=== PATIENT | female | born 1985 | race Caucasian/White ===

== ENCOUNTER 2022-08-07 21:55 | Emergency (ER) | payer OTHER, SELFPAY ==
[2022-08-07 22:35] VITALS: BP 122/90; PULSE 131; RESP 16; TEMP 37.5; O2SAT 99
[2022-08-07 22:46] LABS: Basophils Percent Auto 0.3 % (0.2-1.2); Hematocrit 49.4 % (37.0-47.0); Hemoglobin 16.6 g/dL (12.0-15.0); Immature Granulocyte Absolute 0.02 K/mm3 (0.00-0.031); Immature Granulocyte Percent A 0.2 % (0-0.5); Lymphocytes Absolute Auto 0.66 K/mm3 (0.9-3.2); Lymphocytes Percent Auto 5.9 % (18.3-44.2); Mean Corpuscular HGB Conc 33.6 g/dl (32-36); Mean Corpuscular Hemoglobin 29.3 pg (26-34); Mean Corpuscular Volume 87.3 fl (80-100); Mean Platelet Volume 10.4 fl (7.4-10.4); Monocytes Absolute Auto 0.4 K/mm3 (0.1-0.6); Monocytes Percent Auto 3.9 % (2.6-8.5); Neutrophils Absolute Auto 10.1 K/mm3 (1.3-6.7); Neutrophils Percent Auto 89.7 % (45.5-73.1); Platelet Count Result 263 k/mm3 (150-375); Red Blood Count 5.66 M/mm3 (4.2-5.4); Red Cell Distribution Width 13.6 % (11.5-14.5); White Blood Count 11.3 K/mm3 (4.5-10.0)
[2022-08-07 22:53] LABS: Appearance Urine Turbid (Clear); Bacteria Urine 1+ /hpf; Bilirubin Urine Negative (Negative); Blood Urine 1+ (Negative); Color Urine Dark Yellow (Yellow); Glucose Urine UA Negative (Negative); Ketones Urine 1+ mg/dL (Negative); Leukocyte Esterase Ur Negative LEU/UL (Negative); Nitrate Urine Negative (Negative); Protein Urine Trace mg/dL (Negative); Specific Grav Ur 1.033 (1.001-1.035); Squamous Epithelial Cell Urine Moderate /hpf (Few); pH Urine 5.5 (5.0-9.0)
[2022-08-07 22:58] LABS: Alanine Aminotransferase 26 U/L (6-35); Albumin Level 4.8 g/dL (3.5-5.1); Alkaline Phosphatase 106 U/L (38-126); Anion Gap 12 mmol/L (8-16); Aspartate Amino Transferase 29 U/L (14-36); Bilirubin,Total 1.5 mg/dL (0.2-1.3); Blood Urea Nitrogen 11 mg/dL (7-17); Carbon Dioxide 21 mmol/L (22-30); Chloride 103 mmol/L (98-107); Estimated CRCL calculation 101 ml/min; Estimated Glomerular Filt Rate > 60; Glucose 149 mg/dL (65-110); Lipase 42 U/L (23-300); Potassium 3.8 mmol/L (3.4-5.0); Sodium 136 mmol/L (137-145)
[2022-08-07 23:41] LABS: Add Urine Microscopic? YES
[2022-08-08] VITALS (7 sets, daily range): BP systolic 114–140; BP diastolic 83–93; PULSE 102–144; RESP 13–17; TEMP 36.4–37.1; O2SAT 97–99
[2022-08-08] MEDS: ONDANSETRON INJ 4 MG/2 ML VIAL IV PUSH (00:57)
[2022-08-08] MEDS: SODIUM CHLORIDE 0.9% IV 1,000 ML 999 ML IV CONT ×2 (00:57→00:58)
--- NOTE | 2022-08-08 01:04 | ED.GENADULT ---
HPI - General Adult General Chief complaint: Nausea/Vomiting/Diarrhea Stated complaint: Vomiting Time Seen by Provider: 08/08/22 00:29 History of Present Illness HPI narrative: Patient is a 37-year-old female who presents to the emergency department with chief complaint of nausea vomiting and diarrhea. Patient reports that she is an insulin-dependent diabetic and reports that she had multiple bouts of nausea vomiting and diarrhea today patient reports that she has been unable to keep anything down reports that she feels extremely dehydrated and is concerned that she could be developing DKA. The patient reports no localizing abdominal pain. Related Data Allergies Allergy/AdvReac Type Severity Reaction Status Date / Time ibuprofen Allergy Swelling Verified 08/08/22 00:26 of Lip/Tongue/Throat Review of Systems Review of Systems: A 10 system review of systems was completed on the patient and is negative except for what is stated in the HPI. Nursing and ancillary documentation was reviewed. Exam Narrative: GENERAL: Well-appearing, well-nourished, and in no acute distress. HEAD: Normocephalic, atraumatic. EYES: PERRLA and EOMI. ENT: Nares clear, no rhinorrhea or epistaxis. Mucous membranes dry. NECK: Supple. CHEST: Clear to auscultation. No respiratory distress. HEART: Tachycardic rate and rhythm. No murmur heard. Normal peripheral pulses. ABDOMEN: Soft, nontender, nondistended, normal active bowel sounds. EXTREMITIES: Normal range of motion. No edema. SKIN: Warm, dry, no rash. NEURO: No focal deficits. Alert and oriented x3. PSYCH: Normal mood and affect. Course Vital Signs Vital signs: Vital Signs Temperature 37.5 C 08/07/22 22:35 Pulse Rate 131 H 08/07/22 22:35 Respiratory Rate 16 08/07/22 22:35 Blood Pressure 122/90 08/07/22 22:35 Pulse Oximetry 99 08/07/22 22:35 Oxygen Delivery Room Air 08/07/22 22:35 Temperature 37.1 C 08/08/22 00:23 Pulse Rate 102 H 08/08/22 02:32 Respiratory Rate 17 08/08/22 02:32 Blood Pressure 122/89 08/08/22 02:32 Pulse Oximetry 98 08/08/22 02:32 Oxygen Delivery Room Air 08/07/22 22:35 Medical Decision Making MDM Narrative Medical decision making narrative: Differential diagnosis includes gastroenteritis, dehydration, DKA, hyperglycemia. Oratory studies were obtained on the patient which showed her to have a hemoglobin of 16.6 white blood cell count was 11.3. Electrolytes were obtained which showed a sodium of 136 and a CO2 of 21 and an anion gap of 12 blood sugar was 149. Given CO2 is in the normal range or slightly elevated the patient is not showing signs of metabolic acidosis. Also the patient has a normal anion gap this would be unlikely that the patient will be in DKA at this point. Urinalysis just showed 1+ ketones and 6-10 WBCs and 1+ bacteria. Patient received 2 L of normal saline boluses and Zofran in the emergency department. The patient is feeling much better will be p.o. challenge. Given the patient does have 6-10 white blood cells in her urine is concerned that this could be a urinary tract infection the patient will be started on p.o. Keflex for probable UTI. Vital Signs Vital Signs: Vital Signs Temperature 37.5 C 08/07/22 22:35 Pulse Rate 131 H 08/07/22 22:35 Respiratory Rate 16 08/07/22 22:35 Blood Pressure 122/90 08/07/22 22:35 Pulse Oximetry 99 08/07/22 22:35 Oxygen Delivery Room Air 08/07/22 22:35 Temperature 37.1 C 08/08/22 00:23 Pulse Rate 102 H 08/08/22 02:32 Respiratory Rate 17 08/08/22 02:32 Blood Pressure 122/89 08/08/22 02:32 Pulse Oximetry 98 08/08/22 02:32 Oxygen Delivery Room Air 08/07/22 22:35 Lab Data 08/07/22 22:39 08/07/22 22:39 Labs: Lab Results 08/07/22 Range/Units 22:39 WBC 11.3 H (4.5-10.0) K/mm3 RBC 5.66 H (4.2-5.4) M/mm3 Hgb 16.6 H (12.0-15.0) g/dL Hct 49.4 H (37.0-47.0)
== END 2022-08-08 03:10 | disposition home or self-care (01) ==
PROVIDERS: Emergency Provider Emergency Medicine; PCP Physician Assistant
DX: K52.9 Noninfective gastroenteritis and colitis, unspecified (principal); N30.00 Acute cystitis without hematuria; E13.9 Other specified diabetes mellitus without complications; Z79.4 Long term (current) use of insulin
CPT/HCPCS: 36415; 80053; 81001; 81025; 83690; 85025; 87086; 87088; 96361; 96374; 99284; J2405; J7030

== ENCOUNTER 2023-08-07 15:30 | Emergency (ER) | payer OTHER, SELFPAY ==
[2023-08-07 15:32] VITALS: BP 151/92; PULSE 90; RESP 20; TEMP 36.5; O2SAT 100
--- NOTE | 2023-08-07 17:37 | ED.DENTAL ---
HPI - Dental/Oral General Chief complaint: Dental/Oral Stated complaint: toothache Time Seen by Provider: 08/07/23 17:37 Source: patient Mode of arrival: ambulatory Limitations: no limitations History of Present Illness HPI Narrative: This is a 38-year-old female who presents to the ED with chief complaint of left-sided dental pain for the past 2 days. Patient reports she has not seen a dentist 25 years due to not having insurance. She reports pain primarily to the left lower molars. Denies trismus, drooling, fevers, chills. She reports she had so much pain today that caused her to feel dizzy. Denies syncope. Related Data Allergies Allergy/AdvReac Type Severity Reaction Status Date / Time ibuprofen Allergy Swelling Verified 08/07/23 15:35 of Lip/Tongue/Throat Review of Systems Review of Systems: All systems as dictated in HPI Exam Narrative: GENERAL: Well-appearing, well-nourished, and in no acute distress. HEAD: Normocephalic, atraumatic. EYES: PERRLA and EOMI. ENT: Severe plaque pulled up throughout the mouth, worse in the left lower molars. Dental caries throughout. No discrete or obvious abscess. No trismus. No drooling. Nares clear, no rhinorrhea or epistaxis. Mucous membranes moist. Oropharynx without tonsillar hypertrophy exudate or other lesions. NECK: Supple. No adenopathy or masses. CHEST: No respiratory distress. Clear to auscultation. No wheezes rales or rhonchi HEART: Regular rate and rhythm. No murmur heard. Normal peripheral pulses. ABDOMEN: Soft, nontender, nondistended, normal active bowel sounds. MSK: Normal range of motion. No edema. SKIN: Warm, dry, no rash. NEURO: Alert and oriented x3. No focal deficits. PSYCH: Normal mood and affect. Course Vital Signs Vital signs: Vital Signs Temperature 97.7 F 08/07/23 15:32 Pulse Rate 90 08/07/23 15:32 Respiratory Rate 20 08/07/23 15:32 Blood Pressure 151/92 H 08/07/23 15:32 Pulse Oximetry 100 08/07/23 15:32 Oxygen Delivery Room Air 08/07/23 15:32 Temperature 97.7 F 08/07/23 15:32 Pulse Rate 69 08/07/23 17:56 Respiratory Rate 20 08/07/23 17:56 Blood Pressure 112/72 08/07/23 17:56 Pulse Oximetry 98 08/07/23 17:56 Oxygen Delivery Room Air 08/07/23 15:32 MDM - Dental/Oral MDM Narrative Medical decision making narrative: This is a 38-year-old female who presents to the ED with chief complaint of left lower dental pain. Vitals are normal. Exam shows severe plaque buildup on the teeth, multiple dental caries. No obvious abscess. Patient was given Rx for antibiotics, short course of [place] and dental referral sheet. Pt will be discharged in stable condition. Return precautions given and supportive measures discussed. Pt is understanding and agreeable with plan for discharge and follow-up with PCP. Discharge Plan Discharge Clinical Impression: Dental caries Patient Disposition: Home, Self-Care Condition: Stable Instructions: Antibiotic Form, Toothache (ED) Additional Instructions: Your exam is showing a multiple dental cavities. Please take antibiotics as prescribed by urgent care for infection. Use [place] for breakthrough pain and to be able to sleep. Use Tylenol 500 mg every 4-6 hours as needed for pain control. Prescriptions: New hydrocodone-acetaminophen 5-325 mg tablet 1 tablet PO Q8H PRN (Reason: pain) Qty: 10 0RF No Action ondansetron 4 mg tablet,disintegrating 4 mg PO Q8H PRN (Reason: nausea and vomiting) Qty: 10 0RF cephalexin 500 mg capsule 500 mg PO Q12H 7 Days Qty: 14 0RF Follow-up/Referrals: Britt,JONNA Cuevas [Primary Care Provider] - Stand Alone Forms: Work/School Release IP Time of Disposition: 17:45
[2023-08-07 17:56] VITALS: BP 112/72; PULSE 69; RESP 20; O2SAT 98
== END 2023-08-07 17:58 | disposition home or self-care (01) ==
PROVIDERS: Emergency Provider Physician Assistant; PCP Physician Assistant
DX: K02.9 Dental caries, unspecified (principal)
CPT/HCPCS: 99283